=== PATIENT | female | born 1965 | race Caucasian/White ===

== ENCOUNTER → 2023-07-03 09:06 | Outpatient (REF) | payer OTHER, SELFPAY | LOC: HWWDC 09:06 | PROVIDERS: ATTENDING PHYSICIAN Obstetrics & Gynecology Gynecology; FAMILY PHYSICIAN Family Medicine | DX: Z12.31 Encounter for screening mammogram for malignant neoplasm of breast (principal) | CPT/HCPCS: 77063; 77067 ==

== ENCOUNTER → 2023-12-05 09:40 | Outpatient (REF) | payer OTHER, SELFPAY | LOC: HWRAD 09:40 | PROVIDERS: ATTENDING PHYSICIAN Physician Assistant; FAMILY PHYSICIAN Family Medicine | DX: M81.0 Age-related osteoporosis without current pathological fracture (principal) | CPT/HCPCS: 77080 ==

== ENCOUNTER → 2025-01-27 09:03 | Outpatient (REF) | payer OTHER, SELFPAY | LOC: HWRAD 09:03 | PROVIDERS: ATTENDING PHYSICIAN Internal Medicine Rheumatology; FAMILY PHYSICIAN Family Medicine | DX: M79.7 Fibromyalgia (principal); M81.0 Age-related osteoporosis without current pathological fracture | CPT/HCPCS: 77080; 77081 ==